=== PATIENT | male | born 1945 | race Caucasian/White ===

== ENCOUNTER → 2023-04-24 | Outpatient (CLI) | payer OTHER | LOC: M PLAIMG 12:20 | PROVIDERS: ATTEND Nurse Practitioner Family | DX: R51.9 Headache, unspecified (principal); R07.81 Pleurodynia; M25.561 Pain in right knee; M25.562 Pain in left knee; M25.78 Osteophyte, vertebrae; Z87.81 Personal history of (healed) traumatic fracture; M85.88 Other specified disorders of bone density and structure, other site ==